=== PATIENT | male | born 1965 | race African-American/Black ===

== ENCOUNTER 2019-12-12 14:01 | Emergency (ER) | payer MEDICAID, OTHER ==
[~2019-12-12] VITALS: Ht 195.6 cm; Wt 89.8 kg
[2019-12-12 14:03] VITALS: BP 148/106
--- NOTE | 2019-12-12 14:03 | NUR ---
PT BIB EMS VIA GURNEY TO BED 8.
[2019-12-12] MEDS ORDERED: ALBUTEROL 0.083% 2.5 MG/3 ML NEBU INH ONE (14:25)
[2019-12-12] MEDS ORDERED: predniSONE 20 MG TAB PO ONE (14:25)
[2019-12-12] MEDS ORDERED: IPRATROPIUM 0.02% 0.5 MG/2.5 ML NEBU INH ONE (14:25)
--- NOTE | 2019-12-12 14:32 | NUR ---
PT TAKEN TO XRAY VIA WC.
--- NOTE | 2019-12-12 14:33 | NUR ---
54 Y/M BIB EMS FROM URGENT CARE FOR SOB, ASTHMA, AND WHEEZING. PT GIVEN ALBUTEROL AND SOLUMEDROL IN URGENT CARE. ANOTHER ALBUTEROL TX GIVEN IN EMS. PT REPORTS SOB AND ASTHMA EXACERBATION BEGAN X 3 DAYS AGO. PT REPORTS DIARRHEA X 3 DAYS. SOB UNRELIEVED BY PROAIR AND ALBUTEROL, PT RAN OUT OF PREDNISONE WHICH USUALLY HELPS SX. PTS RR EVEN AND UNLABORED. WHEEZING HEARD THROUGHOUT INSPIRATORY AND EXPIRATORY. PT ON PULSE OX 98% 02 ON RA.ABDOMEN SOFT AND NONDISTENDED. PT DENIES CP, NAUSEA, VOMITING, DYSURIA. HX- HTN, HEART DISEASE
--- NOTE | 2019-12-12 14:40 | NUR ---
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
--- NOTE | 2019-12-12 14:47 | NUR ---
RESPIRATORY AT BEDSIDE.
[2019-12-12 15:41] VITALS: BP 148/106
== END 2019-12-12 15:34 | disposition home or self-care (01) ==
LOC: MED 14:01
DX: J44.1 Chronic obstructive pulmonary disease with (acute) exacerbation (principal); F17.200 Nicotine dependence, unspecified, uncomplicated; Z71.6 Tobacco abuse counseling
CPT/HCPCS: 71046; 94640; 99283; J7512; J7613; J7644